=== PATIENT | female | born 1980 | race American Indian/Alaskan Native ===

== ENCOUNTER 2017-06-19 16:14 | Emergency (ER) | payer BC ==
[2017-06-19 17:22] LABS: Basophils % (Auto) 0.5 % (0.0-1.8); Eosinophils % (Auto) 1.4 % (0.0-4.3); Hematocrit 39.3 % (30.3-42.9); Hemoglobin 12.2 gm/dl (10.1-14.3); Mean Corpuscular HGB Conc 31 % (30-34); Mean Corpuscular Volume 81 fl (79-97); Platelet Count 232 K/mm3 (140-440); Red Blood Count 4.88 M/mm3 (3.65-5.03); Red Cell Distribution Width 14.5 % (13.2-15.2); White Blood Count 4.3 K/mm3 (4.5-11.0)
[2017-06-19 17:24] LABS: Mean Corpuscular Hemoglobin 25 pg (28-32)
[2017-06-19 17:40] LABS: Anion Gap 18 mmol/L; BUN/Creatinine Ratio 18; Blood Urea Nitrogen 11 mg/dL (7-17); Calcium 8.8 mg/dL (8.4-10.2); Carbon Dioxide 24 mmol/L (22-30); Chloride 100.5 mmol/L (98-107); Glucose 87 mg/dL (65-100); Potassium 3.5 mmol/L (3.6-5.0); Sodium 139 mmol/L (137-145)
--- NOTE | 2017-06-20 01:20 | Emergency Department Report ---
ED Chest Pain HPI - General Chief Complaint: Chest Pain Stated Complaint: CHEST PAIN /RT ARM NUMBNESS Time Seen by Provider: 06/20/17 01:16 Source: patient Mode of arrival: Wheelchair Limitations: No Limitations - History of Present Illness Initial Comments: 37 yo female with chest pain , right arm numbness and tingling that lasted from 1400 until 11; 1151. pt stated that her pressure was elevated and she has not had this before. MD Complaint: chest pain -: hour(s) (few) Onset: during rest Pain Location: substernal Pain Radiation: RUE Severity scale (0 -10): 4 Quality: heaviness Consistency: now resolved, other (resolved at 11:51) Worsens With: nothing re: denies: nausea, vomting, diaphoresis, dyspnea Treatments Prior to Arrival: none Aspirin use within the Past 7 Days: (0) No - Related Data Previous Rx's Medication Instructions Recorded Last Taken Type Diclofenac Dr [Voltaren Dr] 75 mg PO Q12H #20 tablet 08/06/15 Unknown Rx HYDROcodone/APAP 7.5-325 [[place] 1 each PO Q6HR PRN #16 tablet 08/06/15 Unknown Rx 7.5/325] Allergies Allergy/AdvReac Type Severity Reaction Status Date / Time No Known Allergies Allergy Unverified 08/06/15 11:51 Heart Score - HEART Score History: Slightly suspicious EKG: Non-specific Age: < 45 Risk factors: 1-2 risk factors Troponin: < normal limit HEART Score: 2 ED Review of Systems ROS: Stated complaint: CHEST PAIN /RT ARM NUMBNESS Other details as noted in HPI Constitutional: denies: chills, fever Eyes: denies: eye pain, eye discharge, vision change ENT: denies: ear pain, throat pain Respiratory: denies: cough, shortness of breath, wheezing Cardiovascular: chest pain. denies: palpitations, dyspnea on exertion Endocrine: no symptoms reported Gastrointestinal: denies: abdominal pain, nausea, diarrhea Genitourinary: denies: urgency, dysuria, discharge Musculoskeletal: denies: back pain, joint swelling, arthralgia Skin: denies: rash, lesions Neurological: paresthesias (right arm). denies: headache, weakness Psychiatric: denies: anxiety, depression Hematological/Lymphatic: denies: easy bleeding, easy bruising ED Past Medical Hx - Past Medical History Hx Hypertension: Yes Hx Asthma: Yes (RA) Additional medical history: PVC'S - Surgical History Additional Surgical History: Ectopic , tubal ligation - Social History Smoking Status: Never Smoker Substance Use Type: None - Medications Home Medications: Home Medications Medication Instructions Recorded Confirmed Last Taken Type Diclofenac Dr [Voltarestarr Dr] 75 mg PO Q12H #20 tablet 08/06/15 Unknown Rx HYDROcodone/APAP 7.5-325 [[place] 1 each PO Q6HR PRN #16 tablet 08/06/15 Unknown Rx 7.5/325] ED Physical Exam - General Limitations: No Limitations General appearance: alert, in no apparent distress - Head Head exam: Present: atraumatic, normocephalic - Eye Eye exam: Present: normal appearance, EOMI - ENT ENT exam: Present: mucous membranes moist - Neck Neck exam: Present: normal inspection - Respiratory Respiratory exam: Present: normal lung sounds bilaterally. Absent: respiratory distress - Cardiovascular Cardiovascular Exam: Present: regular rate, normal rhythm. Absent: systolic murmur, diastolic murmur, rubs, gallop - GI/Abdominal GI/Abdominal exam: Present: soft, normal bowel sounds - Extremities Exam Extremities exam: Present: normal inspection - Back Exam Back exam: Present: normal inspection - Neurological Exam Neurological exam: Present: alert, oriented X3 - Psychiatric Psychiatric exam: Present: normal affect, normal mood - Skin Skin exam: Present: warm, dry, intact, normal color. Absent: rash ED Course Vital Signs 06/19/17 06/19/17 06/19/17 16:49 22:25 22:31 Temperature 98.6 F Pulse Rate 80 73 Respiratory 18 15 9 L Rate Blood Pressure 125/92 128/92 O2 Sat by Pulse 100 Oximetry 06/19/17 06/19/17 06/19/17 22:45 23:00 23:15 Temperature Pulse Rate 76 80 74 Respiratory 13 24 18 Rate Blood Pressure 129/95 129/87 129/87 O2 Sat by Pulse 99 Oximetry 06/19/17 06/19/17 06/19/17 23:31 23:45 23:46 Temperature Pulse Rate 68 70 Respiratory 21 24 18 Rate Blood Pressure 129/87 118/89 O2 Sat by Pulse 99 100 98 Oximetry 06/20/17 06/20/17 06/20/17 00:00 00:15 00:31 Temperature Pulse Rate 74 71 69 Respiratory 24 23 16 Rate Blood Pressure 129/89 129/89 122/85 O2 Sat by Pulse 100 98 100 Oximetry 06/20/17 06/20/17 06/20/17 00:45 01:00 01:15 Temperature Pulse Rate 72 75 70 Respiratory 27 H 15 16 Rate Blood Pressure 117/85 115/88 115/88 O2 Sat by Pulse 100 100 Oximetry 06/20/17 06/20/17 06/20/17 01:31 01:45 02:05 Temperature Pulse Rate 80 80 91 H Respiratory 15 14 Rate Blood Pressure 122/93 127/92 122/93 O2 Sat by Pulse Oximetry 06/20/17 06/20/17 06/20/17 02:15 02:31 02:45 Temperature Pulse Rate 74 77 97 H Respiratory 18 27 H 35 H Rate Blood Pressure 122/93 119/89 123/93 O2 Sat by Pulse Oximetry 06/20/17 03:00 Temperature Pulse Rate 77 Respiratory 27 H Rate Blood Pressure 114/86 O2 Sat by Pulse Oximetry - Reevaluation(s) Reevaluation #1: 06/20/17 01:49 pain free from the time she arrived here ED Medical Decision Making - Lab Data Result diagrams: 06/19/17 17:04 06/19/17 17:04 - EKG Data EKG shows normal: sinus rhythm, axis - EKG Data Interpretation: other (PROLONG AR INTERVAL) 06/20/17 03:09 EKG#2: SINUS RHYTHM, Q IN V1-V2 - Radiology Data Radiology results: report reviewed (CXR: MILD CARDIOMEGALY) - Medical Decision Making PT AHS 3 NEGATIVE TROPONIS AND NEGATIVE EKGS,HER PAIN STOPPED WHEN SHE ARRIVED HERE AND HAS NOT REOCCURRED. i WILL D/C HER HOME TO FOLLOW UP WITH CARDIOLOGY DR Micheal MEDINA Critical care attestation.: If time is entered above; I have spent that time in minutes in the direct care of this critically ill patient, excluding procedure time. ED Disposition Clinical Impression: Chest pain Qualifiers: Chest pain type: unspecified Qualified Code(s): R07.9 - Chest pain, unspecified Disposition: DC-01 TO HOME OR SELFCARE Is pt being admited?: No Does the pt Need Aspirin: No Condition: Stable Instructions: Chest Pain (ED) Referrals: REBECCA OLIVEIRA MD [Primary Care Provider] - 3-5 Days Time of Disposition: 03:07
--- NOTE | 2017-06-20 02:23 | XRay Report ---
FINAL REPORT EXAM: XR CHEST ROUTINE 2V HISTORY: chest pain TECHNIQUE: PA and lateral views of the chest were obtained. FINDINGS: The heart is mildly enlarged. The thoracic aorta is mildly tortuous. The lungs are clear. Pleural fluid is not seen. The bones and soft tissues appear normal. IMPRESSION: Mild cardiomegaly. No acute process in the chest.
[2017-06-20 03:02] VITALS: BP 114/86
== END 2017-06-20 03:30 | disposition home or self-care (01) ==
LOC: ED 16:14
DX: R07.9 Chest pain, unspecified (principal); I10 Essential (primary) hypertension; J45.909 Unspecified asthma, uncomplicated
CPT/HCPCS: 36415; 71020; 80048; 84484; 85025; 85379; 93005; 93010

== ENCOUNTER 2019-03-16 18:14 | Emergency (ER) | payer SELFPAY ==
[2019-03-16 18:22] VITALS: BP 150/91
--- NOTE | 2019-03-16 19:23 | XRay Report ---
LEFT WRIST 2 VIEWS. INDICATION / CLINICAL INFORMATION: right wrist pain COMPARISON: None available. FINDINGS: BONES / JOINT(S): No acute fracture or subluxation. No significant arthritis. SOFT TISSUES: No significant abnormality. ADDITIONAL FINDINGS: None. Signer Name: Paulie Bal MD Signed: 03/16/2019 7:19 PM Workstation Name: [id number]
[2019-03-16] MEDS ORDERED: TYLENOL PO ONE (19:56)
[2019-03-16] MEDS ORDERED: IBUPROFEN PO ONE (19:56)
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
== END 2019-03-16 20:37 | disposition home or self-care (01) ==
LOC: ED 18:14
DX: S63.501A Unspecified sprain of right wrist, initial encounter (principal); S46.911A Strain of unspecified muscle, fascia and tendon at shoulder and upper arm level, right arm, initial encounter; I10 Essential (primary) hypertension; J45.909 Unspecified asthma, uncomplicated; Z98.890 Other specified postprocedural states; Z98.51 Tubal ligation status; Z79.899 Other long term (current) drug therapy; X58.XXXA Exposure to other specified factors, initial encounter; Y93.89 Activity, other specified; Y92.218 Other school as the place of occurrence of the external cause; Y99.0 Civilian activity done for income or pay
CPT/HCPCS: 99283

== ENCOUNTER 2019-03-17 17:38 | Emergency (ER) | payer OTHER ==
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
[2019-03-17] MEDS ORDERED: IBUPROFEN PO ONE (19:48)
[2019-03-17] MEDS ORDERED: PERCOCET 5/325 PO ONE (19:48)
[2019-03-17] MEDS ORDERED: ZOFRAN ODT PO ONE (19:48)
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
[2019-03-17 21:13] VITALS: BP 136/94
== END 2019-03-17 21:12 | disposition home or self-care (01) ==
LOC: ED 17:38
DX: M62.838 Other muscle spasm (principal); M54.41 Lumbago with sciatica, right side; R19.7 Diarrhea, unspecified; V89.2XXA Person injured in unspecified motor-vehicle accident, traffic, initial encounter; Y93.89 Activity, other specified; Y92.410 Unspecified street and highway as the place of occurrence of the external cause; Y99.8 Other external cause status
CPT/HCPCS: 72100; Q0162